=== PATIENT | female | born 1955 | race Caucasian/White ===

== ENCOUNTER 2018-08-14 10:45 | Day surgery (SDC) | payer BC ==
[2018-08-14] VITALS (9 sets, daily range): BP systolic 99–126; BP diastolic 54–92
[~2018-08-14] VITALS: Ht 165.1 cm; Wt 99.4 kg
[2018-08-14] MEDS ORDERED: sod bicarbonate 150mEq in D5W 1,150 ML IV ONE (11:20)
[2018-08-14] MEDS ORDERED: diphenhydrAMINE 25mg capsule PO PRN (11:20)
[2018-08-14] MEDS ORDERED: LOSA50TA3 PO (11:41)
[2018-08-14] MEDS ORDERED: LEVO25TA2 PO (11:41)
[2018-08-14] MEDS ORDERED: XARELTO PO (11:41)
[2018-08-14] MEDS ORDERED: HYDR12.55 PO (11:41)
[2018-08-14 11:54] LABS: BASOPHILS % (AUTO) 0.4 % (0-1); EOSINOPHILS # (AUTO) 0.1 X10'3 (0-0.9); EOSINOPHILS % (AUTO) 2.2 % (0-6); HEMATOCRIT 49.8 % (35.0-45.0); HEMOGLOBIN 16.4 g/dl (12.0-16.0); LYMPHOCYTES # (AUTO) 1.8 X10'3 (1.1-4.8); LYMPHOCYTES % (AUTO) 30.1 % (21-51); MEAN CORPUSCULAR HEMOGLOBIN 27.5 PG (27.0-31.0); MEAN CORPUSCULAR HGB CONC 32.9 % (33.0-36.5); MEAN CORPUSCULAR VOLUME 83.7 FL (78-98); MEAN PLATELET VOLUME 8.1 FL (7.4-10.4); MONOCYTES # (AUTO) 0.5 X10'3 (0-0.9); MONOCYTES % (AUTO) 8.8 % (2-12); NEUTROPHILS # (AUTO) 3.5 X10'3 (1.8-7.7); NEUTROPHILS % (AUTO) 58.5 % (42-75); PLATELET COUNT 295 X10'3 (140-440); RED BLOOD COUNT 5.95 X10'6 (4.20-5.60); RED CELL DISTRIBUTION WIDTH 14.2 % (11.5-14.5)
[2018-08-14 12:04] LABS: PROTHROMBIN TIME 10.1 SECONDS (9.0-12.0)
[2018-08-14 12:06] LABS: ALBUMIN 4.2 G/DL (3.4-5.0); ANION GAP 10 (8-16); BLOOD UREA NITROGEN 18 MG/DL (7-18); BUN/CREATININE RATIO 20.2 (6.6-38.0); CALCIUM 9.6 MG/DL (8.5-10.1); CHLORIDE 100 MMOL/L (99-107); CREATININE 0.89 MG/DL (0.40-0.90); GLUCOSE 99 MG/DL (70-104); MAGNESIUM 2.3 MG/DL (1.5-2.4); POTASSIUM 3.4 MMOL/L (3.5-5.1); SODIUM 141 MMOL/L (135-145); TOTAL CARBON DIOXIDE 30.6 MMOL/L (24-32); eGFR 64 ML/MIN
[2018-08-14] MEDS ORDERED: verapamil 2.5 mg/ml inj IV ONE ×2 (13:22→13:48)
[2018-08-14] MEDS ORDERED: midazolam 2 mg/2 ml injection ONE ×3 (13:22→13:57)
[2018-08-14] MEDS ORDERED: nitroGLYCERIN-Tridil 50MG/D5W 250 ML IV ONE (13:22)
[2018-08-14] MEDS ORDERED: iohexol 350 MG/ML 50ML vial IV ONE (13:23)
[2018-08-14] MEDS ORDERED: iohexol 350MG/ML 100ml bottle IV ONE (13:23)
[2018-08-14] MEDS ORDERED: fentaNYL/PF 50MCG/1 ML 2ML syringe ONE ×2 (13:23→13:31)
[2018-08-14] MEDS ORDERED: heparin 1,000unit/ml 10ml vial 10 ML ONE (13:23)
[2018-08-14] MEDS ORDERED: LIDOcaine 1% (10mg/ml)w/preservative injection 20ml MDV ONE (13:50)
== END 2018-08-14 17:30 | disposition home or self-care (01) ==
LOC: SSTAY O 10:45
PROVIDERS: ATTEND Internal Medicine Cardiovascular Disease
DX: I70.8 Atherosclerosis of other arteries (principal); I10 Essential (primary) hypertension; E66.9 Obesity, unspecified; I48.0 Paroxysmal atrial fibrillation; E03.9 Hypothyroidism, unspecified; K21.9 Gastro-esophageal reflux disease without esophagitis; Z90.89 Acquired absence of other organs; Z90.710 Acquired absence of both cervix and uterus; Z68.36 Body mass index [BMI] 36.0-36.9, adult; Z85.828 Personal history of other malignant neoplasm of skin; Z86.11 Personal history of tuberculosis; Z79.899 Other long term (current) drug therapy; Z98.890 Other specified postprocedural states; Z88.8 Allergy status to other drugs, medicaments and biological substances; Z82.49 Family history of ischemic heart disease and other diseases of the circulatory system; Z80.0 Family history of malignant neoplasm of digestive organs
CPT/HCPCS: 36415; 80048; 83735; 85025; 85610; 93458; 99152; 99153; A6257; A6402; A6449; C1769; J1644; J2001; J2250; J3010; J3490; J7030; Q0163; Q9967; A4620